=== PATIENT | male | born 1970 | race African-American/Black ===

== ENCOUNTER 2025-07-05 12:24 | Emergency (ER) | payer OTHER ==
[~2025-07-05] VITALS: Ht 185.4 cm; Wt 77.0 kg
[~2025-07-05 12:24] MED LIST: AMIO200T8 PO; ASPI-1444 PO; ATOR40TA71 PO; CARV3 PO; LOSA-417 PO; SPIR-37 PO; TICA90TA PO
[2025-07-05 13:16] VITALS: BP 116/76; PULSE 71; RESP 18; TEMP 97.9; O2SAT 100
[2025-07-05] MEDS ORDERED: TICA90TA PO (13:41)
== END 2025-07-05 14:24 | disposition home or self-care (01) ==
LOC: EMS 12:25
DX: F17.210 Nicotine dependence, cigarettes, uncomplicated (principal); F12.90 Cannabis use, unspecified, uncomplicated; I25.2 Old myocardial infarction; Z98.890 Other specified postprocedural states; Z79.82 Long term (current) use of aspirin; Z76.0 Encounter for issue of repeat prescription; Z79.899 Other long term (current) drug therapy
CPT/HCPCS: 99281; Z7502